=== PATIENT | female | born 1965 | race Caucasian/White ===

== ENCOUNTER 2020-06-13 09:44 | Emergency (ER) | payer OTHER ==
--- NOTE | 2020-06-13 10:36 | TELE ---
HPI Do you have fever,cough or shortness of breath?: No - General Reason For Visit: COVID 19 TEST History Source: Patient (54-year-old female with no past medical history or smoking history presents to ED for Covid testing. Patient states she was with her cousin 11 days ago who tested positive for Covid yesterday and is concerned for herself.) Exam Limitations: No Limitations - History of Present Illness Timing/Duration: unsure Associated Symptoms: reports: denies symptoms Past History - Travel History Traveled outside of the country in the last 30 days: No Close contact w/someone who was outside of country & ill: No - Psycho-Social/Smoking History Patient Lives Alone: No Lives with/in: spouse/SO Review of Systems - Review of Systems Able to Perform ROS?: Yes Limited Burmese proficient: No Constitutional: No: Symptoms Reported HEENTM: No: Symptoms Reported Respiratory: No: Symptoms reported Cardiac (ROS): No: Symptoms Reported ABD/GI: No: Symptoms Reported : No: Symptoms Reported Musculoskeletal: No: Symptoms Reported Integumentary: No: Symptoms Reported Neurological: No: Symptoms reported Endocrine: No: Symptoms Reported Hematologic/Lymphatic: No: Symptoms Reported *Physical Exam - Physical Exam General Appearance: Yes: Nourished, Appropriately Dressed. No: Apparent Distress HEENT: positive: EOMI Neck: positive: Supple Respiratory/Chest: negative: Respiratory Distress, Accessory Muscle Use Gastrointestinal/Abdominal: negative: Distended Extremity: positive: Normal Inspection Integumentary: positive: Normal Color Neurologic: positive: Motor Strength 5/5 (ambulatory) - Medical Decision Making 06/13/20 10:46 Chief complaint: Patient requesting Covid testing due to exposure to a +11 days ago patient denies any medical history or symptoms presently. PE: limited but otherwise normal. plan: Covid test ordered Discharge Diagnosis at time of Disposition: Encounter for laboratory testing for COVID-19 virus - Referrals Follow-up Referral(s): [facility] [Primary Care Provider] - - Patient Instructions - Discharge Disposition: HOME Condition at time of Disposition: Good
== END 2020-06-13 10:47 | disposition home or self-care (01) ==
LOC: JVIRT 09:44
DX: Z03.818 Encounter for observation for suspected exposure to other biological agents ruled out (principal)
CPT/HCPCS: C9803; Q3014-GT; U0003

== ENCOUNTER 2020-07-20 11:34 | Emergency (ER) | payer OTHER | END 2020-07-20 12:19 | disposition home or self-care (01) | LOC: JVIRT 11:34 | DX: Z11.59 Encounter for screening for other viral diseases (principal) | CPT/HCPCS: C9803; Q3014-GT; U0003 ==

== ENCOUNTER 2020-10-28 10:12 | Emergency (ER) | payer OTHER | END 2020-10-28 11:47 | disposition home or self-care (01) | LOC: JVIRT 10:12 | DX: Z20.822 Contact with and (suspected) exposure to COVID-19 (principal) | CPT/HCPCS: C9803; G2251-GT; U0003 ==

== ENCOUNTER 2020-11-11 17:29 | Emergency (ER) | payer OTHER | END 2020-11-11 18:02 | disposition home or self-care (01) | LOC: JVIRT 17:29 | DX: Z20.822 Contact with and (suspected) exposure to COVID-19 (principal) | CPT/HCPCS: C9803; G2251-GT; U0003 ==

== ENCOUNTER 2020-11-28 12:58 | Emergency (ER) | payer OTHER ==
[2020-11-29 06:08] LABS: SARS-CoV-2 NAA Not Detected (Not Detected)
== END 2020-11-28 14:00 | disposition home or self-care (01) ==
LOC: JVIRT 12:58
DX: Z11.52 Encounter for screening for COVID-19 (principal)
CPT/HCPCS: C9803; G2251-GT; U0003; U0005